=== PATIENT | female | born 1960 | race Caucasian/White ===

== ENCOUNTER → 2021-06-28 08:16 | Outpatient (CLI) | payer BC, SELFPAY ==
--- NOTE | ~2021-06-28 | MR_ITS ---
EXAMINATION: MR knee RT wo con DATE: 06/28/2021 08:59 INDICATION: Chronic worsening generalized right knee pain and weakness TECHNIQUE: Magnetic resonance imaging (MRI) of the right knee was performed without intravenous contr ast. Sequences included coronal PD-weighted FSE, coronal PD-weighted FS FSE, sagittal T2-weighted FS E, sagittal PD-weighted FS FSE and axial PD weighted fat saturated FSE. COMPARISON: None. FINDINGS: Medial compartment: Medial meniscus is normal. Partial-thickness cartilage loss with minimal chondral surface irregularit y along the anterior weightbearing medial femoral condyle and anterior third of the medial tibial latosha teau, both with tiny foci of subarticular edema. Additional chondral surface irregularity but with pr eviously increasing cartilage thickness at the central and posterior weightbearing medial femoral con dyle. Tiny marginal osteophytes are present. Lateral compartment: Lateral meniscus is normal. Articular cartilage is normal. Patellofemoral compartment: Deep chondral ulceration, emplaces full/near full-thickness with underlying subarticular edema at the patellar apical ridge and medial facet as well as the medial side of the medial trochlea. Ligaments and tendons: Anterior and posterior cruciate ligaments are normal. Minimal increased signal at the proximal medial and fibular collateral ligaments without surrounding edema consistent with mild scarring related to chronic sprains. Small enthesophytes at the patellar insertion of the distal quadriceps tendon. Colvin lar tendon is normal. The visualized medial and lateral hamstring tendons as well as the iliotibial b and are normal. Fluid: Physiologic amount of fluid in the joint space. No loose osteochondral bodies identified. Osseous/other: Cephalad from the previous noted minimal degenerative subarticular edema there is normal marrow signa l. No fracture or pathologic marrow replacing process. IMPRESSION: 1. 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 Mild osteoarthritis in the medial compartment. Reviewed, dictated and finalized at location A. IMPRESSION: 1. Moderate osteoarthritis with extensive high-grade chondromalacia at the medi al side of the patellofemoral compartment 2. Mild osteoarthritis in the medial compartment.
== END ==
PROVIDERS: PCP Internal Medicine; Visit Provider Nurse Practitioner Family
DX: M17.11 Unilateral primary osteoarthritis, right knee (principal); M22.41 Chondromalacia patellae, right knee
CPT/HCPCS: 73721

== ENCOUNTER → 2022-06-05 09:51 | Outpatient (REF) | payer BC, SELFPAY | LOC: ANHLAB 09:51 | PROVIDERS: PCP Internal Medicine; Visit Provider Nurse Practitioner | DX: D49.2 Neoplasm of unspecified behavior of bone, soft tissue, and skin (principal) | CPT/HCPCS: 88305 ==

== ENCOUNTER → 2022-06-13 16:15 | Outpatient (REF) | payer BC, SELFPAY | LOC: ANHLAB 16:15 | PROVIDERS: PCP Internal Medicine; Visit Provider Surgery Plastic and Reconstructive Surgery | DX: C44.719 Basal cell carcinoma of skin of left lower limb, including hip (principal) | CPT/HCPCS: 88305; 88342 ==

== ENCOUNTER → 2022-07-02 13:46 | Outpatient (REF) | payer BC, SELFPAY | LOC: ANHLAB 13:46 | PROVIDERS: PCP Internal Medicine; Visit Provider Surgery Plastic and Reconstructive Surgery | DX: C44.91 Basal cell carcinoma of skin, unspecified (principal) | CPT/HCPCS: 88305 ==